=== PATIENT | female | born 1985 | race Caucasian/White ===

== ENCOUNTER 2018-04-18 17:00 | Inpatient (IN) | payer MEDICAID, SELFPAY ==
[2018-04-18 17:23] VITALS: BMI 23.1
[2018-04-18] MEDS: Lactated Ringers 1,000 ML 50 ML IV ×3 (17:30→21:55)
--- NOTE | 2018-04-18 17:33 | PCM.HP.OB ---
History Date of Admission: 04/18/18 Final TAM: 05/11/18 Final TAM Source: US >20 weeks Gestational age: 36 Weeks and 5 Days History of this : @ 36.5 wks SROM at home- with contractions every 2-3 min. pt was Breech in office yesterday but now is vertex confirmed by bedside ultrasound. pt offers no other complaints currently. Allergies No Known Allergies Allergy (Verified 12/18/16 18:17) Smoking Status: Current every day smoker Alcohol: None Substance Use Type: Amphetamines - + on screen but patient reports was taking weight loss medicaiton which can cause positive result. Number of Fetus(es): 1 Review of Systems Constitutional: Denies: Anorexia Cardiovascular: Denies: Chest Pain Gastrointestinal: Reports: Abdominal Pain Physical Exam General: Alert, Oriented x3 Abdomen: Soft, Gravid Estimated gestational size: Appropriate for gestational size Presentation: Cephalic Cervix Dilation (cm): 5 Station: -1 Effacement (%): 80 Assessment/Plan 32yo @ 36.5 wks SROM in active labor 1) admit to L&D 2) Bedside ultrasound confirms vertex 3) utox today 4) PNL reviewed- O+, HIV neg, hep b neg, Rub imm, Syphilis neg, GBS pending- rapid GBS sent today 5) epidural if requested for pain
[2018-04-18] MEDS: 0.9% Saline Lock 10 ML Syringe IV (17:40)
[2018-04-18 18:04] LABS: Hematocrit 36.1 % (37-47); Hemoglobin 10.9 g/dl (12.0-15.0); Mean Corp Hgb Conc 30.2 g/gl (32-36); Mean Corpuscular Hgb 20.6 pg (27.0-32.0); Mean Corpuscular Volume 68.4 fL (81-99); Platelet Count 220 K/mm3 (150-450); RBC Distribution Width CV 25.5 % (11.6-14.6); RBC Distribution Width SD 61.1 fl (35.1-43.9); Red Blood Count 5.28 M/mm3 (4.2-5.4); White Blood Count 8.7 K/mm3 (4.4-11.0)
[2018-04-18 18:14] LABS: AST(SGOT) 10 U/L (15-37); Alanine Aminotransfer ALT/SGPT 11 U/L (13-56); Creatinine, Serum 0.42 mg/dL (0.55-1.02); EST Glomerular Filtration Rate 182 mL/min (>60); Est Glom Filt Rate - Afr Amer 220 mL/min (>60); Estimated Creatinine Clearance 183.54 ml/min; Uric Acid 4.2 mg/dL (2.6-6.0)
[2018-04-18 18:16] LABS: Partial Thromboplast Time 28.3 Seconds (24.1-36.2); Prothrombin Time (Protime)PT. 13.6 SECONDS (11.7-14.9)
[2018-04-18 18:20] LABS: Protein, Urine (Random) 12.5 mg/dL (<11.9); Protein:Creat Ratio 268 mg/g CRE (0-200)
[2018-04-18 18:21] LABS: Amphetamine Urine VISTA NEGATIVE (<1000 ng/mL); Barbiturate Urine VISTA NEGATIVE (< 200 ng/mL); Benzodiazepine Urine VISTA NEGATIVE (< 200 ng/mL); Cocaine Urine VISTA NEGATIVE (< 300 ng/mL); Ecstacy Urine VISTA NEGATIVE (< 500 ng/mL); Methadone Urine VISTA NEGATIVE (< 300 ng/mL); PCP Urine VISTA NEGATIVE (< 25 ng/mL); THC Urine VISTA NEGATIVE (< 50 ng/mL); Vista UDS pH Range 7
[2018-04-18 18:35] LABS: Scan Indicated on CBC? Y/N YES- FLAGS NOTED
[2018-04-18 19:06] LABS: Group B Strep DNA By PCR Negative (Negative); Internal Control PASS; Probe Check PASS; Specimen Processing Control PASS
[2018-04-18] MEDS: fentaNYL-bupivacaine (epidural) 100 ML BAG EPIDURAL (19:22)
[2018-04-18] MEDS: Oxytocin 30 units/NS 500 ml 30 UNITS/500 ML IV.SOLN IV (21:13)
[2018-04-18] MEDS: Oxytocin 30 units/NS 500 ml 30 UNITS/500 ML IV.SOLN 334 UNITS IV (22:55)
--- NOTE | 2018-04-18 23:03 | PCM.OB.VAG ---
Vaginal Delivery Maternal Presentation: Active Labor Amniotic Membrane Rupture Type: Spontaneous at home Amniotic Fluid Description: Clear Final TAM: 05/11/18 Gestational age: 36 Weeks and 5 Days Date of Procedure: 04/18/18 Pre-Operative Diagnosis: spontaneous PROM, Active labor Post-Operative Diagnosis: same, live male infant Surgery/ Procedure Performed: Spontaneous Vaginal Delivery Type of Anesthesia: Epidural Description of Procedure: of live male born without complication with only one push. delayed cord clamping performed. Presentation: Vertex Placental Delivery Description: Spontaneous Placenta Disposition: [facility] Cord Vessel Description: 3 Vessels Cord Entanglement: None Drain: Gates to straight drain Estimated Blood Loss: 100 A gender: Male (1 minute): 8 (5 minute): 9 Episiotomy Description: None Laceration: None Medications given after delivery: IV Pitocin Complications: None
[2018-04-18] MEDS: Oxytocin 30 units/NS 500 ml 30 UNITS/500 ML IV.SOLN 167 UNITS IV (23:25)
[2018-04-19 05:30] VITALS: BP 117/78; PULSE 85; RESP 16; TEMP 36.3
[2018-04-19] MEDS: Ibuprofen 600 MG Tablet PO ×2 (05:34→20:08)
--- NOTE | 2018-04-19 07:25 | PCM.PN.OB ---
Subjective: pt seen at bedside, doing well. pt reports good pain control, lochia mild. bottle feeding - Physical Exam General: Alert, Oriented x3 Abdomen: Soft, Non Tender, Non-Distended, - - fundus firm Extremities: No Calf Tenderness Vital Signs Temp Pulse Resp BP 97.3 F L 85 16 117/78 04/19/18 05:30 04/19/18 05:30 04/19/18 05:30 04/19/18 05:30 Weight: 67.132 kg Body Mass Index (BMI) 23.1 Intake and Output for Last 24 Hours 04/17/18 04/18/18 04/19/18 23:59 23:59 23:59 Intake Total 1906 / 1906 951 / 951 Output Total 600 / 600 1300 / 1300 Balance 1306 / 1306 -349 / -349 Laboratory Tests Past 24 Hrs 04/18/18 04/18/18 04/18/18 17:30 17:30 17:30 WBC 8.7 RBC 5.28 Hgb 10.9 L Hct 36.1 L MCV 68.4 L MCH 20.6 L MCHC 30.2 L RDW 25.5 H RDW Differential 61.1 H Plt Count 220 MPV TNP PT 13.6 INR 1.0 APTT 28.3 Creatinine Estim Creat Clear Calc Est GFR (MDRD) Af Amer Est GFR (MDRD) Non-Af Uric Acid AST ALT U Random Total Protein Urine Creatinine Protein/Creatinin Ratio Urine Opiates Screen Urine Methadone Screen Ur Barbiturates Screen Ur Phencyclidine Scrn Ur Amphetamines Screen U Methamphetamin-MDMA U Benzodiazepines Scrn Urine Cocaine Screen U Cannabinoids Screen Ur Drug Screen Comment Group B Strep DNA Specimen Comment Blood Type O POSITIVE Antibody Screen NEGATIVE 04/18/18 04/18/18 04/18/18 17:30 17:30 17:30 WBC RBC Hgb Hct MCV MCH MCHC RDW RDW Differential Plt Count MPV PT INR APTT Creatinine 0.42 L Estim Creat Clear Calc 183.54 Est GFR (MDRD) Af Amer 220 Est GFR (MDRD) Non-Af 182 Uric Acid 4.2 AST 10 L ALT 11 L U Random Total Protein 12.5 H Urine Creatinine 46.60 Protein/Creatinin Ratio 268 H Urine Opiates Screen Urine Methadone Screen Ur Barbiturates Screen Ur Phencyclidine Scrn Ur Amphetamines Screen U Methamphetamin-MDMA U Benzodiazepines Scrn Urine Cocaine Screen U Cannabinoids Screen Ur Drug Screen Comment Group B Strep DNA Negative Specimen Comment Not Reportable Blood Type Antibody Screen 04/18/18 17:30 WBC RBC Hgb Hct MCV MCH MCHC RDW RDW Differential Plt Count MPV PT INR APTT Creatinine Estim Creat Clear Calc Est GFR (MDRD) Af Amer Est GFR (MDRD) Non-Af Uric Acid AST ALT U Random Total Protein Urine Creatinine Protein/Creatinin Ratio Urine Opiates Screen NEGATIVE Urine Methadone Screen NEGATIVE Ur Barbiturates Screen NEGATIVE Ur Phencyclidine Scrn NEGATIVE Ur Amphetamines Screen NEGATIVE U Methamphetamin-MDMA NEGATIVE U Benzodiazepines Scrn NEGATIVE Urine Cocaine Screen NEGATIVE U Cannabinoids Screen NEGATIVE Ur Drug Screen Comment Group B Strep DNA Specimen Comment Blood Type Antibody Screen Medical Necessity - Tobacco Use Smoking Status: Current every day smoker Assessment/Plan PPD#1, doing well routine care
[2018-04-19 07:48] VITALS: BP 133/80; PULSE 88; RESP 18; TEMP 36.8
[2018-04-19 12:08] VITALS: BP 119/64; PULSE 89; RESP 18; TEMP 36.9
--- NOTE | 2018-04-19 12:28 | DCINST_ITS ---
Discharge Diet: No Restrictions Discharge Activity: Return to Normal Activity, May not drive while taking narcotic pain medications., May Shower May resume sexual activity in: 4-6 weeks Additional Activity Instructions:: Nothing in the vagina for 4-6 weeks. You may return to work/school in 6 weeks. Call your doctor if your incision/area has: Continuous Slow Oozing, Sudden Increased Bleeding, Increased Pain/ Swelling, Increased Redness, Foul Smelling Discharge Additional Instructions: If you experience any of the following, contact your healthcare provider. * Bleeding that soaks a pad every hour for 2 hours * Fever 100.4 or higher * Unrelieved incision or abdominal pain * Swelling, redness, discharge or bleeding from your incision or episiotomy site * Your incision begins to separate * Problems urinating (including inability to urinate or burning while urinating) . * Visual changes * Severe headache * Flu-like symptoms * Pain or redness in one of both of your breasts * Pain, warmth, tenderness or swelling in your legs, especially the calf area * Frequent nausea and vomiting * Symptoms of depression or anxiety If you experience any of the following, call 911 or go to the nearest Emergency Room. * Chest pain * Problems breathing * Seizure activity * Partial or complete paralysis of a body part, slurred speech, weakness or drooping of the face, or a sudden inability to walk or hold your balance Allergies/Adverse Reactions: Allergies No Known Allergies Allergy (Verified 12/18/16 18:17) Medications to take at Discharge Pnv95/Iron Fum/Folic Acid [ Caplet] 1 each PO DAILY 12/18/16 Sertraline HCl [Zoloft] 25 mg PO DAILY 12/18/16 Ranitidine HCl [Zantac 75] 75 mg PO Q12H 04/30/17 Naproxen [Naprosyn] 250 - 500 mg PO Q8H PRN PRN #30 tab 04/19/18 The following prescriptions were given: Naproxen [Naprosyn] 250 - 500 mg PO Q8H PRN PRN #30 tab PRN Reason: Mild Pain (-02/03) When: Call to make an appointment with your doctor in 6 weeks. If you had elevated Blood Pressure or 4th degree laceration you will need to be seen in 2 weeks. Primary Care Physician: Elizabeth Hu MD [Primary Care Provider] -
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
[2018-04-19] MEDS: Senna/Docusate Sodium 1 Tablet PO (16:20)
[2018-04-19] MEDS: Sertraline 50 MG Tablet 25 MG PO (16:20)
[2018-04-19 19:58] VITALS: BP 133/83; PULSE 100; RESP 16; TEMP 37.4
--- NOTE | 2018-04-20 01:00 | NURSING ---
Taking over patient care at this time.
[2018-04-20 01:50] VITALS: BP 112/75; PULSE 87; RESP 18; TEMP 36.7
[2018-04-20] MEDS: Ibuprofen 600 MG Tablet PO (04:20)
--- NOTE | 2018-04-20 08:35 | PCM.PN.OB ---
Subjective: Patient sitting up in bed reporting no issues. Infant being formula fed, patient declines plans to express breastmilk. Patient denies scotoma, dizziness or BAZZI. Denies issues with urination or ambulation. Patient desires discharge to home today. Objective: Nipples without cracks or blisters FF midline @ 3FB below umbilicus No edema in LE, no calf tenderness to palpation Scant rubra lochia Perineum well-approximated - Physical Exam General: Alert, Oriented x3, Cooperative HEENT: Atraumatic, Normocephalic Neck: Supple Lungs: Normal air movement Cardiovascular: Regular rate, No murmurs Abdomen: Soft, Non Tender Extremities: No edema, Capillary Refill Less than 3 Seconds Skin: No rashes, No breakdown Musculoskeletal: No Tenderness to Palpation of Joints or Extremities Neurological: Cranial nerves II-XII grossly intact Psych/Mental Status: Normal Affect, Appropriate Vital Signs Temp Pulse Resp BP 98.1 F 87 18 112/75 04/20/18 01:50 04/20/18 01:50 04/20/18 01:50 04/20/18 01:50 Oxygen Delivery Method Room Air Weight: 148 lb Body Mass Index (BMI) 23.1 Intake and Output for Last 24 Hours 04/18/18 04/19/18 04/20/18 23:59 23:59 23:59 Intake Total 1906 / 1906 951 / 951 Output Total 600 / 600 1300 / 1300 Balance 1306 / 1306 -349 / -349 Medical Necessity - Tobacco Use Smoking Status: Current every day smoker Assessment/Plan 32 y/o, s/p , PPD #2, Normal Course P: 1) Depo Provera IM today 2) Patient plans PPTL, will schedule with [facility] for pre-op visit 3) Anticipatory PP health teaching done 4) RTC in 6 weeks for PP visit. Paris CHAKRABORTY
[2018-04-20 09:52] VITALS: BP 132/88; PULSE 84; RESP 14; TEMP 36.8; O2SAT 98
--- NOTE | 2018-04-20 11:23 | NURSING ---
Reviewed charting by SN Edilberto.
[2018-04-20] MEDS: Sertraline 50 MG Tablet 25 MG PO (12:54)
[2018-04-20] MEDS: MedroxyPROGESTERone 150 MG/ML Syringe IM (12:57)
--- NOTE | 2018-04-20 13:18 | NURSING ---
Observed SN Edilberto with zoloft administration and depo-provera injection and documentation.
[2018-04-20 14:00] VITALS: BP 129/87; PULSE 100; RESP 20; TEMP 36.9; O2SAT 98
--- NOTE | 2018-04-20 15:26 | CASEMGMT ---
Social Work Labor and Delivery Unit Summary: Followed up with mother of baby (MOB) today regarding how the night went, how MOB is feeling today, and plans for home going. MOB reports was able to get some good sleep last night, reports there is definitely a connection with the baby, stating hes mine. MOB reports continued agreement to have a referral for counseling. Discussed with MOB home going support, and MOB reports that father of baby (FOB) is on his way home now so will be here through weekend to help out. MOB reports it has been 2 months since has last seen FOB. Discussed with MOB director social as a mandated reported, and that positive drugs screens in , especially in 3rd trimester due warrant referral. Educated MOB that as MOB and baby are both negative at delivery, as well as possibility of the screen being a false positive not certain a case would be opened and if opened likelihood that children services would be present for support and ensuring familys needs are being met. Assessment: MOB pleasant, cooperative, friendly, with good eye contact today. MOBs affect brighter today as compared to this writers previous interaction with MOB on 04-19-18. MOB was attentive to when infant fussed, recognized that baby needed to feed, and was gentle when handling baby. MOB reports to feel better after some sleep, getting a shower, and feeling excited to see FOB. MOB reports agreement to attend mental health counselling and reports the appointments this news writer obtained will work out. MOB identified that would like a sooner appointment than the intake the counseling center offered, so this news writer was able to get MOB a crisis appointment for next week. MOB reports to feel that will have adequate support through the weekend. MOB confirms that has formula to feed the baby as well. MOB denies any other needs at home going and thanked this news writer for support and assistance. Intervention: Release of information to [facility] signed. Arranged MOB to have a mental health intake for 05-14-18 at 1030 with Loren White. A crisis appointment set for Monday04-25-18 at 0900 with Erika Carroll. Provided MOB with [facility] resource lists, depression packet, calm breathing coping skills handout, and verbal education on some of the resources locally and online. Called [facility] clinical clinical pharmacy manager Elzbieta, about whether hydroxycut could potentially give a false positive for amphetamines. From [place] research the formula for this drug made before 2012 contained ephedra, which could cause false positive. The formula after 2012 does not have ephedra. Called [facility] Children Services ([facility]) and spoke with Maddie in the intake department. Reported positive maternal drug screen in 3rd trimester, though MOB and baby both negative in urine at delivery. Reported that this could be a false positive, but that MOB does have history of drug dependence with drug of choice an amphetamine. Reported risk factors of late care, limited support, multiple children not all in the MOBs home and two that are in home are now under age 1. Reported strengths that MOB has identified MOBs as a strong support, MOB is identifying having a garland with baby, and MOB is recognizing need for additional support for emotional health issues. Not likely that case will be screened in but concerns will be documented per discussion with Maddie. Plan: MOB and baby to home today. Mental health follow up in place, resources lists provided for [facility], depression packet given, including both local and online supports, including [facility] BH program. No other services requested or indicated. -RACHAEL Kahn, POLICE CRIME SCENE TECHNICIAN
== END 2018-04-20 17:50 | disposition home or self-care (01) | DRG 373 ==
PROVIDERS: Admitting Provider Obstetrics & Gynecology; Family Provider Internal Medicine; PCP Internal Medicine; Visit Provider Obstetrics & Gynecology
DX: O42.913 Preterm premature rupture of membranes, unspecified as to length of time between rupture and onset of labor, third trimester (principal); Z3A.36 36 weeks gestation of pregnancy; O99.334 Smoking (tobacco) complicating childbirth; F17.200 Nicotine dependence, unspecified, uncomplicated; Z37.0 Single live birth
CPT/HCPCS: 59025; 59050; 80307; 82565; 82570; 84156; 84450; 84460; 84550; 85027; 85610; 85730; 86850; 86900; 87077; 87081; 87653; 99218; J7120; A4216; G0378

== ENCOUNTER 2019-08-16 07:45 | Emergency (ER) | payer MEDICAID, SELFPAY ==
[2019-08-16 07:46] VITALS: O2SAT 95
[2019-08-16] MEDS: Ondansetron 4 MG/2 ML Vial IV (07:46)
[2019-08-16] MEDS: fentaNYL 100 MCG/2 ML Ampul 50 MCG IV (07:46)
[2019-08-16 07:47] VITALS: BP 127/76; PULSE 95; RESP 23; TEMP 36.1; O2SAT 96; BMI 24.7
--- NOTE | 2019-08-16 07:54 | NURSING ---
PT TO ROOM WITH DR AND STAFF. PT A&O AND SCREAMING WITH MOVEMENT RT LOWER EXT. B/L BREATH SOUNDS WITH SL RHONCI. 0745 DR BARONE DOING ABD US. VS STABLE. XRAY CALLED.
--- NOTE | 2019-08-16 07:58 | ED.RN ---
XRAY COMPLETED AND LABS DOWN. PT ON 100% NRB
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
--- NOTE | 2019-08-16 07:59 | ED.RN ---
0746 50 FENTANYL AND 4MG IV ZOFRAN GIVEN PER DR. ESPARZA.
[2019-08-16 08:00] VITALS: BP 116/78; PULSE 109; RESP 20; O2SAT 100
[2019-08-16] MEDS: Diphth,Pertuss(Acell),Tet Vac 0.5 ML Vial IM (08:03)
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
--- NOTE | 2019-08-16 08:09 | ED.RN ---
0805 CPS FOR EKG. TETANUS GIVEN ORDERED LT THIGH. FHT DONE AND HR NOTED AT 164. PT AROUSABLE ON COMMAND . SPO2 100% ON 100NRB.
[2019-08-16 08:11] LABS: Absolute Lymphocyte Count 1.66 X10^3/uL (0.83-4.51); Absolute Neutrophil Count 10.4 X10^3/uL (2.0-7.7); Basophil# 0.03 X10^3/uL; Basophil% 0.2 % (0-1); Eosinophil# 0.11 X10^3/uL; Eosinophils% 0.8 % (0-5); Hemoglobin 9.3 g/dL (12.0-15.0); Lymphocyte # 1.66 X10^3/ul (4.0); Lymphocyte % 12.6 % (19-41); Mean Corpuscular Hgb 20.6 pg (27.0-32.0); Mean Corpuscular Volume 68.6 fL (81-99); Mean Platelet Vol. 10.3 fl (6.2-12.0); Monocyte# 0.71 X10^3/uL; Monocyte% 5.4 % (0-10); NRBC Flagged by Analyzer 0 % (0-5); Neutrophil # 10.36 X10^3/uL (2.7-7.7); Neutrophil % 78.9 % (47-70); Platelet Count 413 K/mm3 (150-450); RBC Distribution Width CV 16.9 % (11.6-14.6); RBC Distribution Width SD 40.8 fl (35.1-43.9); Red Blood Count 4.52 M/mm3 (4.2-5.4); White Blood Count 13.2 K/mm3 (4.4-11.0)
--- NOTE | 2019-08-16 08:15 | ED.RN ---
[facility] HERE AND REPORT GIVEN AT BEDSIDE. PT'S IN TO SEE PT.
[2019-08-16 08:21] LABS: Anion Gap 10 (5-15); BUN 8 mg/dL (7-18); BUN/Creat Ratio 12.8 RATIO (10-20); Calcium,Total 8.2 mg/dL (8.5-10.1); Chloride 108 mmol/L (98-107); Creatinine, Serum 0.62 mg/dL (0.55-1.02); EST Glomerular Filtration Rate 115 mL/min (>60); Est Glom Filt Rate - Afr Amer 139 mL/min (>60); Estimated Creatinine Clearance 117.43 ml/min; Glucose 147 mg/dL (74-106); Potassium 3.5 mmol/L (3.5-5.1); Sodium Level 140 mmol/L (136-145)
--- NOTE | 2019-08-16 08:21 | NURSING ---
PT MOVED TO CART. PT MOVED TO CART. VS 127/76 -P 95, R-23 AND 100% ON 100% NRB
[2019-08-16 08:25] VITALS: BP 120/78; PULSE 111; RESP 19; O2SAT 100
[2019-08-16 08:40] LABS: Partial Thromboplast Time 23.1 Seconds (24.1-36.2); Prothrombin Time (Protime)PT. 13.4 SECONDS (11.7-14.9)
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
== END 2019-08-16 08:26 | disposition short-term general hospital (02) ==
PROVIDERS: Emergency Provider Emergency Medicine; Family Provider Internal Medicine; PCP Internal Medicine
DX: O9A.212 Injury, poisoning and certain other consequences of external causes complicating pregnancy, second trimester (principal); S20.411A Abrasion of right back wall of thorax, initial encounter; S00.01XA Abrasion of scalp, initial encounter; S70.01XA Contusion of right hip, initial encounter; S70.11XA Contusion of right thigh, initial encounter; S71.111A Laceration without foreign body, right thigh, initial encounter; S90.01XA Contusion of right ankle, initial encounter; Z3A.22 22 weeks gestation of pregnancy; V89.2XXA Person injured in unspecified motor-vehicle accident, traffic, initial encounter; Y93.9 Activity, unspecified; Y92.9 Unspecified place or not applicable; O99.332 Smoking (tobacco) complicating pregnancy, second trimester; F17.200 Nicotine dependence, unspecified, uncomplicated
CPT/HCPCS: 71045; 72170; 73551; 73590; 80048; 85025; 85610; 85730; 90715; 93005; 96365; 96374; 96375; 99285; J7030; A4216; J2405

== ENCOUNTER 2019-12-04 05:15 | Inpatient (IN) | payer MEDICAID, SELFPAY ==
[2019-12-04] VITALS (22 sets, daily range): BP systolic 102–129; BP diastolic 54–84; PULSE 74–102; RESP 16; TEMP 36.6–37.2; O2SAT 94–100; BMI 27.5
--- NOTE | 2019-12-04 | FALS_PTH ---
PATIENT: GRANT HE LOC: [facility] U#:[id number] AGE/SX: 34/F ROOM: WP010 RE12/04/[address]: Dr. Rosy Tanner DO : 1985 BED: 1 DIS: 12/07/2019 SPEC #: [id number] RECD: 12/04/19 11:40 STATUS: MATT ELSA #: [id number] PHAM: 12/04/19 00:[address]: Rosy Tanner DEPT: SURGICAL PATHOLOGY RECD BY: Sami Vargas ENTERED: 12/04/19 11:41 SP TYPE: FALL TUBES OTHR DR: Dr. Elizabeth Hu MD Tissues: Fallopian tube Procedures: Surgery Specimen Level II HEADER OPERATION: Tubal ligation PRE-OP DIAGNOSIS: Sterilization TISSUE SUBMITTED: Fallopian tubes MICROSCOPIC DIAGNOSIS Right and left fallopian tubes, bilateral salpingectomies: Two complete segments of fallopian tubes with no pathologic change. AM:parrish 12/05/19 MICROSCOPIC DESCRIPTION Slides are reviewed. GROSS DESCRIPTION Received is one container labeled with the patient's name and designated bilateral fallopian tubes, left with suture. The specimen consists of two fallopian tubes with an average length of 1.2 cm and has an average diameter of 0.6 cm. Both fallopian tubes have normal fimbriated ends. No mass lesions are identified. 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 / AM:parrish 12/04/19 TC:4 CPT: 78399 x2
[2019-12-04] MEDS: Lactated Ringers 1,000 ML 999 ML IV (05:40)
[2019-12-04 06:10] LABS: Absolute Lymphocyte Count 1.17 X10^3/uL (0.83-4.51); Basophil# 0.04 X10^3/uL; Basophil% 0.6 % (0-1); Eosinophil# 0.17 X10^3/uL; Eosinophils% 2.4 % (0-5); Hematocrit 41.5 % (37-47); Hemoglobin 13.4 g/dL (12.0-15.0); Lymphocyte # 1.17 X10^3/ul (4.0); Lymphocyte % 16.6 % (19-41); Mean Corp Hgb Conc 32.3 g/dL (32-36); Mean Corpuscular Hgb 25.3 pg (27.0-32.0); Mean Corpuscular Volume 78.3 fL (81-99); Mean Platelet Vol. 11.1 fl (6.2-12.0); Monocyte# 0.68 X10^3/uL; Monocyte% 9.6 % (0-10); NRBC Flagged by Analyzer 0 % (0-5); Neutrophil # 4.96 X10^3/uL (2.7-7.7); Neutrophil % 70.4 % (47-70); POSITIVE MORPHOLOGY YES; Platelet Count 207 K/mm3 (150-450); RBC Distribution Width CV 20.1 % (11.6-14.6); RBC Distribution Width SD 56.2 fl (35.1-43.9); White Blood Count 7.1 K/mm3 (4.4-11.0)
[2019-12-04 06:45] LABS: Differential Indicated SCAN CRITERIA MET
[2019-12-04] MEDS: Lactated Ringers 1,000 ML 150 ML IV (06:45)
[2019-12-04 07:13] LABS: Differential Comment SCANNED; Microcytosis 2+
[2019-12-04] MEDS: Sodium Citrate/Citric Acid 30 ML UDC PO (07:18)
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
[2019-12-04] MEDS: Cefazolin 2 GM in 0.9% Normal Saline 100 ML IV (07:23)
[2019-12-04 07:33] LABS: Amphetamine Urine VISTA NEGATIVE (<1000 ng/mL); Barbiturate Urine VISTA NEGATIVE (< 200 ng/mL); Benzodiazepine Urine VISTA NEGATIVE (< 200 ng/mL); Cocaine Urine VISTA NEGATIVE (< 300 ng/mL); Ecstacy Urine VISTA NEGATIVE (< 500 ng/mL); Methadone Urine VISTA NEGATIVE (< 300 ng/mL); PCP Urine VISTA NEGATIVE (< 25 ng/mL); THC Urine VISTA NEGATIVE (< 50 ng/mL); Vista UDS pH Range 6
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
--- NOTE | 2019-12-04 08:33 | NURSING ---
Patient denies history of substance abuse but chart states she has a history of adderrall abuse. Tox screen collected and sent. Patient gave verbal consent.
[2019-12-04] MEDS: Oxytocin 30 units/NS 500 ml 30 UNITS/500 ML IV.SOLN 167 UNITS IV (08:45)
[2019-12-04] MEDS: Acetaminophen 500 MG Tablet 1000 MG PO (10:51)
[2019-12-04] MEDS: Lactated Ringers 1,000 ML 100 ML IV (11:46)
[2019-12-04] MEDS: Ketorolac 30 MG/ML Syringe IV ×2 (14:22→20:21)
[2019-12-04] MEDS: DiphenhydrAMINE 25 MG Capsule PO ×2 (17:41→23:54)
[2019-12-04] MEDS: Enoxaparin 40 MG/0.4 ML Syringe SC (20:57)
[2019-12-05 00:48] VITALS: PULSE 85; RESP 16; O2SAT 99
[2019-12-05] MEDS: Ketorolac 30 MG/ML Syringe IV ×4 (02:15→20:08)
[2019-12-05 03:00] VITALS: PULSE 84; RESP 16; O2SAT 98
[2019-12-05 05:00] VITALS: PULSE 85; RESP 16; O2SAT 99
[2019-12-05 05:23] LABS: Hematocrit 34.1 % (37-47); Hemoglobin 10.9 g/dL (12.0-15.0); Mean Corpuscular Hgb 25.2 pg (27.0-32.0); Mean Corpuscular Volume 78.8 fL (81-99); Mean Platelet Vol. 10.8 fl (6.2-12.0); Platelet Count 166 K/mm3 (150-450); RBC Distribution Width CV 19.9 % (11.6-14.6); Red Blood Count 4.33 M/mm3 (4.2-5.4)
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
[2019-12-05] MEDS: 0.9% Saline Lock 10 ML Syringe IV ×4 (08:20→20:15)
[2019-12-05 08:29] VITALS: BP 114/81; PULSE 90; RESP 16; TEMP 36.9
[2019-12-05] MEDS: oxyCODONE 5 MG Tablet PO ×4 (08:56→22:31)
[2019-12-05] MEDS: Senna/Docusate Sodium 1 Tablet PO (08:58)
[2019-12-05 14:30] VITALS: BP 117/73; PULSE 101; RESP 16; TEMP 37.4; O2SAT 98
[2019-12-05 15:56] LABS: Pathology Specimen OB SEE PATHOLOGY REPORT
[2019-12-05] MEDS: Enoxaparin 40 MG/0.4 ML Syringe SC (20:08)
[2019-12-05 20:17] VITALS: BP 122/79; PULSE 100; RESP 16; TEMP 37
[2019-12-06] MEDS: Ketorolac 30 MG/ML Syringe IV (01:38)
[2019-12-06] MEDS: 0.9% Saline Lock 10 ML Syringe IV ×2 (01:38→01:41)
[2019-12-06 01:42] VITALS: BP 120/75; PULSE 88; RESP 16; TEMP 36.7
[2019-12-06] MEDS: oxyCODONE 5 MG Tablet PO ×4 (05:59→18:22)
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
[2019-12-06 07:38] VITALS: BP 131/87; PULSE 105; RESP 18; TEMP 36.4; O2SAT 97
[2019-12-06] MEDS: Senna/Docusate Sodium 1 Tablet PO (07:45)
[2019-12-06] MEDS: Ibuprofen 600 MG Tablet PO ×3 (07:46→22:24)
[2019-12-06 14:09] VITALS: BP 126/79; PULSE 82; RESP 16; TEMP 36.8
[2019-12-06] MEDS: Acetaminophen 500 MG Tablet 1000 MG PO (17:25)
[2019-12-06 20:25] VITALS: BP 114/79; PULSE 86; RESP 18; TEMP 36.6
[2019-12-06] MEDS: Enoxaparin 40 MG/0.4 ML Syringe SC (20:29)
[2019-12-07 02:45] VITALS: BP 111/73; PULSE 76; RESP 18; TEMP 36.3
[2019-12-07] MEDS: Acetaminophen 500 MG Tablet 1000 MG PO (03:00)
[2019-12-07] MEDS: oxyCODONE 5 MG Tablet PO (08:09)
[2019-12-07] MEDS: Senna/Docusate Sodium 1 Tablet PO (08:09)
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
--- NOTE | 2019-12-07 09:01 | DCINST_ITS ---
Discharge Diet: No Restrictions Discharge Activity: Return to Normal Activity, May Not Drive - for 2 weeks, May not drive while taking narcotic pain medications., May Shower, May Take a Tub Bath - in 7 days. May resume sexual activity in: 4-6 weeks Lifting Restrictions: 20 pounds Additional Activity Instructions:: Nothing in the vagina for 4-6 weeks. You may return to work/school in 6 weeks. Call your doctor if your incision/area has: Continuous Slow Oozing, Sudden Increased Bleeding, Increased Pain/ Swelling, Increased Redness, Foul Smelling Discharge Call your doctor if you observe: Fever of 101 or Higher, Using more than one pad per hour - for 2 hours Suture Line Care: Avoid Pulling/Pushing, Avoid Pinching/Bending Cleanse incision/area with: Soap & Water, Keep Dressing Clean & Dry, - - Remove the bandage on Monday12/09/19 Additional Instructions: If you experience any of the following, contact your healthcare provider. * Bleeding that soaks a pad every hour for 2 hours * Fever 100.4 or higher * Unrelieved incision or abdominal pain * Swelling, redness, discharge or bleeding from your incision or episiotomy site * Your incision begins to separate * Problems urinating (including inability to urinate or burning while urinating). * Visual changes * Severe headache * Flu-like symptoms * Pain or redness in one of both of your breasts * Pain, warmth, tenderness or swelling in your legs, especially the calf area * Frequent nausea and vomiting * Symptoms of depression or anxiety If you experience any of the following, call 911 or go to the nearest Emergency Room. * Chest pain * Problems breathing * Seizure activity * Partial or complete paralysis of a body part, slurred speech, weakness or drooping of the face, or a sudden inability to walk or hold your balance Allergies/Adverse Reactions: Allergies No Known Allergies Allergy (Verified 12/18/16 18:17) Medications to take at Discharge Pnv95/Iron Fum/Folic Acid [ Caplet] 1 each PO DAILY 12/18/16 Sertraline HCl [Zoloft] 25 mg PO DAILY 12/18/16 Docusate Sodium [Colace] 100 mg PO BID PRN PRN 14 Days #60 cap 12/07/19 Naproxen [Naprosyn] 250 - 500 mg PO Q8H PRN PRN #30 tab 12/07/19 Oxycodone [Oxyir] 5 mg PO Q6H PRN PRN 7 Days #28 tablet 12/07/19 The following prescriptions were given: Docusate Sodium [Colace] 100 mg PO BID PRN PRN 14 Days #60 cap PRN Reason: Constipation Transmission Status: Pending to [id number] Naproxen [Naprosyn] 250 - 500 mg PO Q8H PRN PRN #30 tab PRN Reason: Mild Pain (-02/03) Transmission Status: Pending to [id number] Oxycodone [Oxyir] 5 mg PO Q6H PRN PRN 7 Days #28 tablet PRN Reason: severe pain Transmission Status: Received by [id number] Follow-Up: Call to make an appointment with your doctor for an incision check in 1-2 weeks. You will also need a 6 week post- follow up appointment. Test results from this visit will be discussed in further detail at your follow- up appointment, if applicable. Please Follow Up With: Rosy Tanner, - Call to make an appointment for an incision check in 1-2 [phone] When: You will need a post check in 6 weeks. Primary Care Physician: Elizabeth Hu MD [Primary Care Provider] -
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
[2019-12-07 10:00] VITALS: BP 125/85; PULSE 84; RESP 12; TEMP 36.9
[2019-12-07 10:35] VITALS: BP 125/85; PULSE 84; RESP 12; TEMP 36.9
--- NOTE | 2019-12-07 11:06 | NURSING ---
1045 Discharged to home with baby via wheelchair to car. States she feels comfortable and able to care for herself and her baby and wants to go home today.
== END 2019-12-07 10:45 | disposition home or self-care (01) | DRG 539 ==
PROVIDERS: Obstetrics & Gynecology; Admitting Provider Obstetrics & Gynecology; Family Provider Internal Medicine; PCP Internal Medicine; Referring Provider Obstetrics & Gynecology; Visit Provider Obstetrics & Gynecology
PROC: 10D00Z1 Extraction of Products of Conception, Low, Open Approach (ICD-10-PCS; CPT 59514; principal; 2019-12-04 07:15)
DX: O75.89 Other specified complications of labor and delivery (principal); Z30.2 Encounter for sterilization; Z87.81 Personal history of (healed) traumatic fracture; Z3A.39 39 weeks gestation of pregnancy; Z37.0 Single live birth; Z87.891 Personal history of nicotine dependence
CPT/HCPCS: 80307; 85025; 85027; 86850; 86900; 86901; 88302; 99218; 99251; J7120; A4216; G0378; G0463; J2405